=== PATIENT | male | born 1950 | race Hispanic/Latino ===

== ENCOUNTER → 2017-05-07 | Outpatient (CLI) | payer OTHER ==
[~2017-05-07] MED LIST: FOSI40TA2 PO; GLYB-228 PO; INVOK100TB PO; PRAV40TA3 PO; TRIA1TAB3 PO
== END | disposition home or self-care (01) ==
LOC: RAH 09:56
PROVIDERS: ATTEND Family Medicine
DX: I35.0 Nonrheumatic aortic (valve) stenosis (principal); I10 Essential (primary) hypertension; E11.9 Type 2 diabetes mellitus without complications; E78.5 Hyperlipidemia, unspecified; E66.9 Obesity, unspecified
CPT/HCPCS: 93306

== ENCOUNTER → 2017-06-03 | Outpatient (CLI) | payer OTHER ==
[~2017-06-03] MED LIST changes: +REGADENOSON 0.4 MG/5 ML PF SYG IVP SCH
== END | disposition home or self-care (01) ==
LOC: SHCH 09:28
PROVIDERS: ATTEND Internal Medicine Cardiovascular Disease
DX: I35.0 Nonrheumatic aortic (valve) stenosis (principal)
CPT/HCPCS: 78452; 93017; 96374; A9500 ×2; J2785

== ENCOUNTER → 2018-07-06 | Outpatient (CLI) | payer OTHER ==
[~2018-07-06] MED LIST changes: -FOSI40TA2 PO; +FOSI40TA5 PO; -REGADENOSON 0.4 MG/5 ML PF SYG IVP SCH
== END | disposition home or self-care (01) ==
LOC: SHCH 09:54
PROVIDERS: ATTEND Internal Medicine Cardiovascular Disease
DX: I51.7 Cardiomegaly (principal); I35.0 Nonrheumatic aortic (valve) stenosis
CPT/HCPCS: 93306

== ENCOUNTER → 2018-08-09 | Outpatient (CLI) | payer OTHER ==
[~2018-08-09] MED LIST changes: +REGADENOSON 0.4 MG/5 ML PF SYG IVP SCH
== END | disposition home or self-care (01) ==
LOC: SHCH 08:18
PROVIDERS: ATTEND Internal Medicine Cardiovascular Disease
DX: I35.0 Nonrheumatic aortic (valve) stenosis (principal)
CPT/HCPCS: 78452; 93017; 96374; A9500 ×2; J2785

== ENCOUNTER 2018-10-19 05:47 | Day surgery (SDC) | payer OTHER ==
[2018-10-17 11:30] VITALS: BP 145/70
[2018-10-17 11:31] LABS: BASOPHILS % (AUTO) 0.2 % (0.0-5.0); EOSINOPHILS % (AUTO) 3.7 % (0.0-8.0); HEMATOCRIT 34.8 % (42-54); MEAN CORPUSCULAR HEMOGLOBIN 27.8 pg (27.0-33.0); MEAN CORPUSCULAR HGB CONC 32.5 g/dL (32.0-36.0); MEAN CORPUSCULAR VOLUME 85.5 fL (79-99); MONOCYTES % (AUTO) 8.5 % (3.0-13.0); NEUTROPHILS % (AUTO) 49.6 % (40.0-77.0); PLATELET COUNT (AUTO) 300 K/uL (130-400); RED BLOOD CELL COUNT(AUTO) 4.07 MIL/uL (4.50-6.20); RED CELL DISTRIBUTION WIDTH 15.5 % (11.0-15.5); WHITE BLOOD COUNT (AUTO) 6.8 K/uL (4.8-10.8)
[2018-10-17 11:32] LABS: APPEARANCE,URINE CLEAR (CLEAR); BILIRUBIN,URINE NEGATIVE (NEGATIVE); COLOR,URINE YELLOW (YELLOW); GLUCOSE, URINE (UA) >=1000 mg/dL (NEGATIVE); KETONES,URINE NEGATIVE (NEGATIVE); LEUKOCYTE ESTERASE ,URINE NEGATIVE (NEGATIVE); NITRATE,URINE NEGATIVE (NEGATIVE); OCCULT BLOOD,URINE NEGATIVE (NEGATIVE); PROTEIN,URINE NEGATIVE (NEGATIVE); UROBILINOGEN,URINE 0.2 mg/dL (0.2-1.0)
[2018-10-17 11:41] LABS: BACTERIA,URINE Rare /HPF (None Seen); RBC,URINE 0-1 /HPF (0-1); SQUAMOUS EPITHELIAL CELL,UR Rare /HPF (0-2); WBC,URINE 0-1 /HPF (0-1)
[2018-10-17 11:47] LABS: INR 0.95 (0.85-1.15); PARTIAL THROMBOPLASTIN TIME 27.4 SEC (26.3-35.5)
[2018-10-17 11:48] LABS: CREATININE 1.4 mg/dL (0.5-1.5); POTASSIUM 4.2 mmol/L (3.5-5.1)
--- NOTE | 2018-10-18 12:04 | NUR ---
BMP INFORMED MAGDY ANRDADE OF ABNORMAL BUN/CREA. ORDERS RECEIVED TO REDRAW BMP ON AM OF PROCEDURE AND START NS @50ML WHEN PT ARRIVES.
[~2018-10-19] VITALS: Ht 170.2 cm; Wt 103.8 kg
[2018-10-19] VITALS (8 sets, daily range): BP systolic 110–125; BP diastolic 51–63
[~2018-10-19 05:47] MED LIST changes: +AEC81 PO; +CARV3.12 PO; +EMPA10TA PO; +GLIP1TAB5 PO; -GLYB-228 PO; -INVOK100TB PO; -REGADENOSON 0.4 MG/5 ML PF SYG IVP SCH; +TIMOLOL MALEATE 0.5% OU
[2018-10-19 07:10] LABS: CREATININE 1.4 mg/dL (0.5-1.5); POTASSIUM 4.5 mmol/L (3.5-5.1)
[2018-10-19] MEDS: SODIUM CHLORIDE 0.9% 1000ML 1,000 ML IV SCH ×2 (07:38→21:41)
[2018-10-19] MEDS ORDERED: SODIUM CHLORIDE 0.9% 1000ML 1,000 ML IV SCH (08:00)
--- NOTE | 2018-10-19 08:55 | NUR ---
REPEAT BMP TODAY CREAT 1.[address] PATEL. NO FURTHER ORDERS GIVEN. MAY PROCEED WITH PLANNED PROCEDURE.
[2018-10-19] MEDS ORDERED: LIDOCAINE HCL 1% 20 ML VIAL ONE (12:02)
[2018-10-19] MEDS ORDERED: HEPARIN SODIUM 1000UNIT/ML 10ML VIAL ONE (12:02)
[2018-10-19] MEDS ORDERED: IOHEXOL 350 MG/ML 100ML INFUS..BTL IV ONE (12:02)
[2018-10-19] MEDS ORDERED: IOHEXOL-350 50ML VIAL IV ONE (12:02)
[2018-10-19] MEDS ORDERED: GLUCAGON 1MG KIT 1 MG ML IM PRN (13:30)
[2018-10-19] MEDS ORDERED: DEXTROSE 50%-WATER 50 ML DISP.SYRIN IV PRN (13:30)
[2018-10-19] MEDS ORDERED: ACETAMINOPHEN-CODEINE 300/30MG TAB PO PRN ×2 (13:30)
--- NOTE | 2018-10-19 13:45 | NUR ---
ASSESSMENT RECEIVED PT FROM INDUSTRIAL ACCOUNTANT PERSONNEL ANDRE MULLER. PT AAOX3. DSTAT NOTED TO RIGHT GROIN. SOFT TO TOUCH. NO BLEEDING, OOZING NOTED TO SITE. INSTRUCTED PT AND FAMILY ON IMPORTANCE OF NOT LIFTING HEAD UP OFF OF BED AND NOT TO MOVE RIGHT LEG. URINAL OFFERED TO PT. INSTRUCTED ON BEDREST FOR 8 HOURS. ALL VERBALIZED UNDERSTANDING.
--- NOTE | 2018-10-19 16:00 | NUR ---
DISCHARGE ORAL AND WRITTEN DISCHARGE INSTRUCTIONS GIVEN TO PT AND PTS FAMILY. INSTRUCTIONS GIVEN ON MONITORING SITE FOR RIGHT GROIN. SITE NICE AND SOFT. NO BLEEDING OR OOZING NOTED TO SITE. NO OTHER QUESTIONS AT THIS TIME.
--- NOTE | 2018-10-19 16:25 | NUR ---
TRANSFER REPORT GIVEN TO ANDRE ZEE. PT LYING IN BED. INSTRUCTED ON IMPORTANCE OF NOT MOVING RIGHT LEG AND NOT LIFTING HEAD. SITE TO RIGHT GROIN SOFT TO TOUCH. NO OOZING, BLEEDING NOTED TO SITE.
[2018-10-19] MEDS: INSULIN HUMULIN R 100 UNIT/ML 3ML SQ SCH ×2 (16:30→21:00)
--- NOTE | 2018-10-19 16:30 | NUR ---
ARRIVAL TO ROOM 229 PT IS AAOX4 DENIES CP DENIES SOB DNEIES NV NO COMPLAINTS. RIGHT GROIN DRESSING IN PLACE, CLEAN DRY AND INTACT NO OOZING NO HEMATOMA NOTED. PLAN FOR DC HOME THIS EVENING AFTER BEDREST COMPLETED. FAMILY AT BEDSIDE, CALL LIGHT WITHIN REACH. HR VIA TELE SR [id number]
--- NOTE | 2018-10-19 21:42 | NUR ---
PT DISCHARGED AT THIS TIME.ACCOMPANIED BY FAMILY. GROIN SITE IS SOFT AND NON TENDER. INSTRUCTED ON ACTIVITY LEVELS. IV REMOVED. TELE PACK REMOVED. PT IS STABLE. NO PAIN STATED. NO DISTRESS NOTED. ESCORTED VIA WHEELCHAIR.
== END 2018-10-19 21:42 | disposition home or self-care (01) ==
LOC: DAH 05:47 → 2AH 17:00 → DAH 21:42
PROVIDERS: ATTEND Internal Medicine Cardiovascular Disease
DX: I25.10 Atherosclerotic heart disease of native coronary artery without angina pectoris (principal); I35.0 Nonrheumatic aortic (valve) stenosis; I10 Essential (primary) hypertension; Z79.01 Long term (current) use of anticoagulants; Z79.899 Other long term (current) drug therapy; Z98.890 Other specified postprocedural states; E11.9 Type 2 diabetes mellitus without complications; Z79.82 Long term (current) use of aspirin; E78.00 Pure hypercholesterolemia, unspecified; Z82.49 Family history of ischemic heart disease and other diseases of the circulatory system; Z68.37 Body mass index [BMI] 37.0-37.9, adult; R53.83 Other fatigue; R06.02 Shortness of breath; E86.0 Dehydration
CPT/HCPCS: 36415 ×2; 71045; 80048 ×2; 81001; 82948 ×2; 85025; 85610; 85730; 93005; 93460; 96360; 96361; A4606; C1769 ×2; C1894 ×2; J1644 ×2; J7030; Q9965 ×2; Q9967 ×2; G0378

== ENCOUNTER 2018-11-14 07:47 | Inpatient (IN) | payer OTHER | END 2018-11-18 20:00 | LOC: DAHIP 07:47 → 2CH 11-15 05:21 → 2AH 11-17 15:13 → 2CV 13:38 | PROC: 02RF08Z Replacement of Aortic Valve with Zooplastic Tissue, Open Approach (ICD-10-PCS; principal; 2018-11-14 10:37) | DX: I35.2 Nonrheumatic aortic (valve) stenosis with insufficiency (principal); N17.9 Acute kidney failure, unspecified; I11.9 Hypertensive heart disease without heart failure; I25.10 Atherosclerotic heart disease of native coronary artery without angina pectoris ==

== ENCOUNTER 2019-02-16 13:38 | Observation (INO) | payer OTHER ==
[~2019-02-16] VITALS: Ht 167.6 cm; Wt 107.0 kg
[~2019-02-16 13:38] MED LIST changes: -TIMOLOL MALEATE 0.5% OU
[2019-02-16] MEDS ORDERED: ASPIRIN 325 MG TABLET ONE (13:56)
[2019-02-16] MEDS ORDERED: NITROGLYCERIN 0.4 MG SL TAB SL ONE (14:00)
[2019-02-16 14:14] LABS: BASOPHILS % (AUTO) 0.4 % (0.0-5.0); EOSINOPHILS % (AUTO) 1.4 % (0.0-8.0); HEMATOCRIT 33.5 % (42-54); LYMPHOCYTES % (AUTO) 27.4 % (21.0-51.0); MEAN CORPUSCULAR HEMOGLOBIN 22.3 pg (27.0-33.0); MEAN CORPUSCULAR HGB CONC 31.5 g/dL (32.0-36.0); MEAN CORPUSCULAR VOLUME 70.7 fL (79-99); NEUTROPHILS % (AUTO) 61.8 % (40.0-77.0); NUCLEATED RED BLOOD CELLS 0.1 % (0.0-0.19); PLATELET COUNT (AUTO) 464 K/uL (130-400); RED BLOOD CELL COUNT(AUTO) 4.73 MIL/uL (4.50-6.20); RED CELL DISTRIBUTION WIDTH 21.6 % (11.0-15.5); WHITE BLOOD COUNT (AUTO) 11.7 K/uL (4.8-10.8)
[2019-02-16] MEDS ORDERED: ONDANSETRON HCL 4 MG/2 ML VIAL ONE (14:14)
[2019-02-16] MEDS ORDERED: MORPHINE SULFATE 4 MG/1ML SYG ONE (14:14)
[2019-02-16 14:22] LABS: INR 1.07 (0.85-1.15); PARTIAL THROMBOPLASTIN TIME 28.7 SEC (26.3-35.5); PROTHROMBIN TIME 11.2 SEC (9.6-11.6)
[2019-02-16 14:29] LABS: CREATININE 1.7 mg/dL (0.5-1.5); POTASSIUM 4.3 mmol/L (3.5-5.1)
[2019-02-16 14:34] LABS: ALBUMIN 3.5 g/dL (3.5-5.0); BILIRUBIN,TOTAL 0.4 mg/dL (0.2-1.0); TOTAL PROTEIN, SERUM 8.2 g/dL (6.0-8.3)
[2019-02-16 15:04] LABS: AMPHET/METH SCREEN,URINE NEGATIVE (NEGATIVE); BARBITURATE SCREEN, URINE NEGATIVE (NEGATIVE); BENZODIAZEPINES SCREEN,URINE NEGATIVE (NEGATIVE); CANNABINOID SCREEN,URINE NEGATIVE (NEGATIVE); COCAINE SCREEN,URINE NEGATIVE (NEGATIVE); OPIATE SCREEN,URINE NEGATIVE (NEGATIVE); PHENCYCLIDINE SCREEN,URINE NEGATIVE (NEGATIVE)
[2019-02-16] MEDS ORDERED: PANTOPRAZOLE SODIUM 40 MG TABLET.DR PO ONE (22:17)
[2019-02-17] MEDS ORDERED: MORPHINE SULFATE 2 MG/ML 1ML SYG ONE (00:19)
[2019-02-17 01:30] VITALS: BP 97/61
[2019-02-17] MEDS ORDERED: ONDANSETRON HCL 4 MG/2 ML VIAL IVP PRN (02:00)
[2019-02-17] MEDS ORDERED: MORPHINE SULFATE 2 MG/ML 1ML SYG IVP PRN (02:00)
[2019-02-17] MEDS ORDERED: ACETAMINOPHEN 325 MG TAB PO PRN ×2 (02:00)
[2019-02-17] MEDS ORDERED: NITROGLYCERIN 0.4 MG SL TAB SL PRN (02:00)
[2019-02-17 02:26] LABS: CREATINE KINASE, TOTAL 22 U/L (21-232); MYOGLOBIN 37 ng/mL (10-92); TROPONIN I < 0.04 ng/mL (0.00-0.06)
[2019-02-17] MEDS ORDERED: DORZ10DR10 OU (02:46)
[2019-02-17] MEDS ORDERED: OLME20TA22 PO (02:46)
[2019-02-17] MEDS ORDERED: FAMO-136 PO (02:46)
[2019-02-17 04:00] VITALS: BP 90/55
[2019-02-17 04:40] VITALS: BP 90/55
[2019-02-17 07:08] VITALS: BP 108/69
[2019-02-17 08:00] VITALS: BP 112/65
[2019-02-17] MEDS ORDERED: GLIPIZIDE 5 MG TABLET PO SCH (08:00)
[2019-02-17] MEDS ORDERED: METFORMIN HCL 500 MG TABLET PO SCH (08:00)
[2019-02-17] MEDS ORDERED: TRIAMTERENE/HYDROCHLOROTHIAZID 37.5/25 MG TAB PO SCH (09:00)
[2019-02-17] MEDS ORDERED: ASPIRIN 81 MG EC TAB PO SCH (09:00)
[2019-02-17] MEDS ORDERED: FAMOTIDINE 20MG TAB 20 MG TAB PO SCH (09:00)
[2019-02-17] MEDS ORDERED: ENOXAPARIN SODIUM 30 MG/0.3 ML SQ SCH (09:00)
[2019-02-17] MEDS ORDERED: DORZOLAMIDE HCL/TIMOLOL MALEAT DROPS 10 ML BOTTLE OU SCH (09:00)
[2019-02-17] MEDS ORDERED: EMPAGLIFLOZIN 10 MG PO SCH (09:00)
[2019-02-17] MEDS ORDERED: PANTOPRAZOLE SODIUM 40 MG TABLET.DR PO SCH (09:00)
[2019-02-17] MEDS ORDERED: ASPIRIN 81MG TAB.CHEW PO SCH (09:00)
[2019-02-17] MEDS ORDERED: OLMESARTAN MEDOXOMIL 20 MG PO SCH (09:00)
[2019-02-17 09:03] LABS: CREATINE KINASE, TOTAL 23 U/L (21-232); MYOGLOBIN 44 ng/mL (10-92); TROPONIN I < 0.04 ng/mL (0.00-0.06)
[2019-02-17 11:00] VITALS: BP 123/69
[2019-02-17] MEDS ORDERED: CARV12.511 PO (11:05)
[2019-02-17] MEDS ORDERED: DOXY100C2 PO (11:07)
--- NOTE | 2019-02-17 17:00 | NUR ---
X4 ATTEMPTS TO NOTIFY U/S TECH. NO ANSWER IMMIGRATION CASE MANAGER AWARE.
--- NOTE | 2019-02-17 18:13 | NUR ---
PENDING U/S OF LATRICE LOWER EXTREMITIES FOR D/C HOME
--- NOTE | 2019-02-17 19:10 | NUR ---
PT D/C HOME USING TEACH BACK TECHNIQUE RE; HOME MEDS TO CONTINUE, S/S TO WATCH FOR AND WHEN TO CALL 911 OR MD. FOLLOW UP WITH YOUR PRIMARY DOCTOR IN 2-4 DAYS. FOLLOW UP WITH YOUR COMIC BOOK ARTIST IN 1 WEEK REGARDING SHORTNESS OF BREATH. CONTINUE ALL HOMEMEDS. IF SHORTNESS OF BREATH OR CHEST PAIN DOES NOT RESOLVE WITH REST CALL 911. IV OUT INTACT, NO BLEEDING, AAOX3, IN NO DISTRESS, TELE REMOVED.
--- NOTE | 2019-02-17 19:10 | NUR ---
LATRICE. VENOUS NEGATIVE FOR DVT
[2019-02-17] MEDS ORDERED: ***HM***Pravastatin Sodium 20 MG PO SCH (21:00)
== END 2019-02-17 19:10 | disposition home or self-care (01) ==
LOC: EDH 13:38 → EDHIP 18:00 → 4DH 02-17 00:04
PROVIDERS: ADMIT Internal Medicine Critical Care Medicine; ATTEND Internal Medicine Critical Care Medicine
DX: M94.0 Chondrocostal junction syndrome [Tietze] (principal); I10 Essential (primary) hypertension; E11.9 Type 2 diabetes mellitus without complications; E78.00 Pure hypercholesterolemia, unspecified; I25.10 Atherosclerotic heart disease of native coronary artery without angina pectoris; E78.5 Hyperlipidemia, unspecified; I44.7 Left bundle-branch block, unspecified; R94.31 Abnormal electrocardiogram [ECG] [EKG]; Z87.891 Personal history of nicotine dependence; Z79.82 Long term (current) use of aspirin; Z95.2 Presence of prosthetic heart valve; Z79.84 Long term (current) use of oral hypoglycemic drugs; Z79.899 Other long term (current) drug therapy
CPT/HCPCS: 36415 ×2; 71045 ×2; 71100; 78582; 80053; 80305; 82550 ×4; 82948 ×2; 83874 ×2; 83880; 84484 ×4; 85025; 85378; 85610; 85730; 93005 ×3; 93970; 96372; 99291; A9540; A9558; G0378 ×25; J1650; J2270; J2405

== ENCOUNTER → 2022-08-10 | Outpatient (CLI) | payer OTHER ==
[~2022-08-10] MED LIST changes: +CARV12.511 PO; -CARV3.12 PO; +DORZ10DR10 OU; +DOXY100C5 PO; +FAMO-136 PO; -FOSI40TA5 PO; +OLME20TA22 PO
== END | disposition home or self-care (01) ==
LOC: SHCH 10:30
PROVIDERS: ATTEND Internal Medicine Cardiovascular Disease
DX: I35.0 Nonrheumatic aortic (valve) stenosis (principal); I51.7 Cardiomegaly; Z95.3 Presence of xenogenic heart valve
CPT/HCPCS: 93306